=== PATIENT | male | born 1980 | race Caucasian/White ===

== ENCOUNTER 2023-08-01 07:47 | Outpatient (CLI) | payer BC ==
[2023-08-01] MEDS ORDERED: Iopamidol 370 76% 100 ML VIAL ONE (10:46)
== END 2023-08-01 07:48 | disposition home or self-care (01) ==
LOC: BICCT 07:47
PROVIDERS: ATTEND Nurse Practitioner Family
DX: K21.9 Gastro-esophageal reflux disease without esophagitis (principal); R63.4 Abnormal weight loss; R30.0 Dysuria; K44.9 Diaphragmatic hernia without obstruction or gangrene; Z98.84 Bariatric surgery status
CPT/HCPCS: 74177; Q9967